=== PATIENT | male | born 1965 | race Caucasian/White ===

== ENCOUNTER 2019-12-08 09:41 | Emergency (ER) | payer MEDICARE ==
[2019-12-08] MEDS ORDERED: Lidocaine 1% PF 5 ML VIAL ONE (09:59)
== END 2019-12-08 10:27 | disposition home or self-care (01) ==
LOC: BURERS 09:41
DX: L02.212 Cutaneous abscess of back [any part, except buttock and flank] (principal); F32.9 Major depressive disorder, single episode, unspecified; I10 Essential (primary) hypertension
CPT/HCPCS: 10060; J2001